=== PATIENT | female | born 1950 | race Asian ===

== ENCOUNTER 2016-10-20 13:12 | Outpatient (CLI) | payer MEDICARE, OTHER ==
[2016-10-20 13:47] LABS: Anion Gap 15 mmol/L (10-20); BUN (Urea Nitrogen) 37 mg/dL (9.8-20.1); Calc. Creatinine Clearance 0 mL/min (70-130); Calcium 9.2 mg/dL (7.8-10.44); Carbon Dioxide 24 mmol/L (23-31); Chloride 108 mmol/L (98-107); Estimated GFR-MDRD 15; Glucose 88 mg/dL (80-115); Potassium 3.4 mmol/L (3.5-5.1); Sodium 144 mmol/L (136-145)
[2016-10-20 17:27] LABS: Creatinine, Urine 37.92 mg/dL (47-110)
== END 2016-10-20 13:13 | disposition home or self-care (01) ==
LOC: MADLAB 13:12
PROVIDERS: ATTEND Internal Medicine Nephrology
DX: N18.9 Chronic kidney disease, unspecified (principal); R80.9 Proteinuria, unspecified
CPT/HCPCS: 36415; 80048; 82570; 84156; 85014; 85018

== ENCOUNTER 2016-11-02 14:43 | Outpatient (CLI) | payer MEDICARE, OTHER | END 2016-11-02 14:44 | LOC: MADLABBHPM 14:43 | PROVIDERS: ATTEND Family Medicine | DX: R30.0 Dysuria (principal) | CPT/HCPCS: 87077; 87086; 87186 ==

== ENCOUNTER 2016-11-09 12:35 | Outpatient (CLI) | payer MEDICARE, OTHER ==
[2016-11-09 12:46] LABS: Bilirubin Negative (Negative); Blood, Urine Moderate (Negative); Clarity Clear (Clear); Glucose, Urine (Dipstick) Negative (Negative); Leukocyte Small (Negative); Nitrite Negative (Negative); Protein, Urine (Dipstick) 30 mg/dL (Neg-Trace); Urobilinogen 0.2 mg/dL (0.2-1.0)
[2016-11-09 12:53] LABS: Bacteria/HPF None Seen HPF (None Seen); RBC/HPF 0-3 HPF (0-3); Squamous Epithelial 0-3 HPF (0-3)
== END 2016-11-09 12:36 ==
LOC: MADLABBHPM 12:35
PROVIDERS: ATTEND Family Medicine
DX: N30.00 Acute cystitis without hematuria (principal)
CPT/HCPCS: 36415; 81001

== ENCOUNTER 2017-12-17 22:35 | Emergency (ER) | payer MEDICARE, OTHER ==
[2017-12-17 23:28] LABS: ALT (SGPT) 8 U/L (8-55); AST (SGOT) 10 U/L (5-34); Albumin 3.9 g/dL (3.4-4.8); Alkaline Phosphatase 34 U/L (40-150); Anion Gap 23 mmol/L (10-20); BUN (Urea Nitrogen) 70 mg/dL (9.8-20.1); Bilirubin, Total 0.5 mg/dL (0.2-1.2); Calc. Creatinine Clearance 0 mL/min (70-130); Calcium 8.6 mg/dL (7.8-10.44); Carbon Dioxide 12 mmol/L (23-31); Chloride 111 mmol/L (98-107); Estimated GFR-MDRD 6; Globulin 3.8 g/dL (2.4-3.5); Glucose 137 mg/dL (80-115); Potassium 3.7 mmol/L (3.5-5.1); Protein, Total 7.7 g/dL (6.0-8.3); Sodium 142 mmol/L (136-145)
[2017-12-17 23:36] LABS: Anisocytosis SLIGHT = 6-15 cells (100X) (0-5/hpf); MDiff Complete? YES; Macrocytosis SLIGHT = 6-15 cells (100X) (0-5/hpf); Mean Corpuscular HGB CONC 38.6 g/dL (32.0-36.0); Mean Corpuscular Hemoglobin 35.8 pg (27.0-31.0); Mean Corpuscular Volume 92.8 fl (81.0-99.0); Mean Platelet Volume 6.1 fL (7.4-10.4); PLT Morphology Comment Appears Adequate; Platelet Count 199 thou/uL (130-400); Poikilocytosis SLIGHT = 6-15 cells (100X) (0-5/hpf); RBC Distribution Width 12.4 % (11.5-14.5); Red Blood Cell (RBC) Count 2.51 mill/uL (4.20-5.40)
[2017-12-17 23:38] LABS: #Basophils 0.1 thou/uL (0.0-0.2); #Eosinphils 0.3 thou/uL (0.0-0.7); #Lymphocytes 1.8 thou/uL (1.20-3.40); #Monocytes 0.6 thou/uL (0.11-0.59); #Neutrophils 5.2 thou/uL (1.40-6.50); %Basophils 1.3 % (0.0-1.0); %Eosinophils 3.2 % (0.0-10.0); %Lymphocytes 24.4 % (21.0-51.0); %Monocytes 6.5 % (0.0-10.0); %Neutrophils 64.6 % (42.0-75.0)
== END 2017-12-18 00:45 | disposition home or self-care (01) ==
LOC: MADERS 22:35
DX: N17.9 Acute kidney failure, unspecified (principal); D64.9 Anemia, unspecified; I10 Essential (primary) hypertension
CPT/HCPCS: 80053; 85025; 99283

== ENCOUNTER 2017-12-19 18:13 | Outpatient (CLI) | payer MEDICARE, OTHER ==
[2017-12-19 18:43] LABS: Anion Gap 21 mmol/L (10-20); BUN (Urea Nitrogen) 73 mg/dL (9.8-20.1); Calc. Creatinine Clearance 0 mL/min (70-130); Calcium 8.4 mg/dL (7.8-10.44); Carbon Dioxide 13 mmol/L (23-31); Chloride 109 mmol/L (98-107); Estimated GFR-MDRD 6; Glucose 136 mg/dL (80-115); Potassium 3.6 mmol/L (3.5-5.1); Sodium 139 mmol/L (136-145)
== END 2017-12-19 18:14 | disposition home or self-care (01) ==
LOC: MADLAB 18:13
PROVIDERS: ATTEND Family Medicine
DX: N17.9 Acute kidney failure, unspecified (principal)
CPT/HCPCS: 36415

== ENCOUNTER 2017-12-22 11:42 | Outpatient (CLI) | payer MEDICARE, OTHER ==
[2017-12-22 13:03] LABS: Bilirubin Negative (Negative); Blood, Urine Small (Negative); Clarity Clear (Clear); Glucose, Urine (Dipstick) 100 mg/dL (Negative); Leukocyte Negative (Negative); Nitrite Negative (Negative); Protein, Urine (Dipstick) 30 mg/dL (Neg-Trace); Urobilinogen 0.2 mg/dL (0.2-1.0)
[2017-12-22 13:06] LABS: Specific Gravity, Urine 1.004 (1.002-1.036)
[2017-12-22 13:17] LABS: #Basophils 0.1 thou/uL (0.0-0.2); #Eosinphils 0.2 thou/uL (0.0-0.7); #Lymphocytes 1.3 thou/uL (1.20-3.40); #Monocytes 0.5 thou/uL (0.11-0.59); #Neutrophils 5.2 thou/uL (1.40-6.50); %Basophils 1.5 % (0.0-1.0); %Eosinophils 3.1 % (0.0-10.0); %Lymphocytes 18.1 % (21.0-51.0); %Monocytes 6.7 % (0.0-10.0); %Neutrophils 70.6 % (42.0-75.0); Hemoglobin 8.7 g/dL (12.0-16.0); Mean Corpuscular HGB CONC 35.4 g/dL (32.0-36.0); Mean Corpuscular Volume 90.5 fl (81.0-99.0); Mean Platelet Volume 6.3 fL (7.4-10.4); Platelet Count 191 thou/uL (130-400); RBC Distribution Width 12.5 % (11.5-14.5); Red Blood Cell (RBC) Count 2.71 mill/uL (4.20-5.40); White Blood Cell (WBC) Count 7.4 thou/uL (4.8-10.8)
[2017-12-22 13:23] LABS: ALT (SGPT) 8 U/L (8-55); AST (SGOT) 9 U/L (5-34); Albumin 3.9 g/dL (3.4-4.8); Alkaline Phosphatase 35 U/L (40-150); Anion Gap 17 mmol/L (10-20); BUN (Urea Nitrogen) 68 mg/dL (9.8-20.1); Bilirubin, Total 0.7 mg/dL (0.2-1.2); Calc. Creatinine Clearance 0 mL/min (70-130); Calcium 9.1 mg/dL (7.8-10.44); Carbon Dioxide 16 mmol/L (23-31); Chloride 108 mmol/L (98-107); Estimated GFR-MDRD 6; Globulin 3.4 g/dL (2.4-3.5); Glucose 143 mg/dL (80-115); Potassium 3.4 mmol/L (3.5-5.1); Protein, Total 7.3 g/dL (6.0-8.3); Sodium 138 mmol/L (136-145)
--- NOTE | 2017-12-22 14:03 | ULT ---
RENAL ULTRASOUND: INDICATIONS: History of polycystic kidney disease. COMPARISON: Abdominal ultrasound dated 02/20/2009 from the [facility]. FINDINGS: The right kidney measures 12.8 x 4.9 x 4.5 cm. There is worsening polycystic involvement of the righ t kidney. No definite soft tissue mass is evident. No silvina hydronephrosis is noted. The left kidney measures 16.8 x 9.7 x 7.3 cm with much worsening polycystic involvement of the left k idney. No hydronephrosis is evident. The pre-void bladder volume is 18 mL, and the post-void is 8 m L. IMPRESSION: 1. Polycystic kidney disease of both kidneys. Limited visualization of the full renal parenchyma bi laterally. The extent of disease makes image detail slightly limited. No definite solid mass is not ed. 2. Minimal volume seen within the bladder. POS: [facility]
[2017-12-22 18:55] LABS: Creatinine, Urine 26.97 mg/dL (47-110)
== END 2017-12-22 11:43 | disposition home or self-care (01) ==
LOC: MADLAB 11:42
PROVIDERS: ATTEND Internal Medicine Nephrology
DX: N18.5 Chronic kidney disease, stage 5 (principal); Q61.3 Polycystic kidney, unspecified
CPT/HCPCS: 36415; 76770; 80053; 81003; 82570; 83970; 84156; 85025

== ENCOUNTER 2018-01-17 09:22 | Outpatient (CLI) | payer MEDICARE, OTHER ==
[2018-01-17 10:42] LABS: Calc. Creatinine Clearance 0 mL/min (70-130); Estimated GFR-MDRD 5
[2018-01-17 11:45] LABS: ALT (SGPT) 7 U/L (8-55); AST (SGOT) 8 U/L (5-34); Albumin 4.2 g/dL (3.4-4.8); Alkaline Phosphatase 39 U/L (40-150); Anion Gap 21 mmol/L (10-20); BUN (Urea Nitrogen) 68 mg/dL (9.8-20.1); Bilirubin, Total 0.6 mg/dL (0.2-1.2); Calcium 9.5 mg/dL (7.8-10.44); Carbon Dioxide 14 mmol/L (23-31); Chloride 113 mmol/L (98-107); Globulin 3.8 g/dL (2.4-3.5); Glucose 103 mg/dL (80-115); Potassium 4.1 mmol/L (3.5-5.1); Sodium 144 mmol/L (136-145)
--- NOTE | 2018-01-17 12:26 | CT ---
CT ABDOMEN WITHOUT IV CONTRAST: CT PELVIS WITHOUT IV CONTRAST: HISTORY: A 67-year-old female with a history of chronic kidney disease. History of polycystic kidney disease. FINDINGS: Minimal increased linear and interstitial markings in the lung bases, nonspecific. Multiple liver cy sts, up to 3.5 cm. Small hiatal hernia. The gallbladder, pancreas, spleen, and adrenal glands are u nremarkable. There are very markedly enlarged kidneys bilaterally with enumerable renal cysts throug hout, including an occasional hemorrhagic cyst and occasional punctate calcification, evidence for lo ngstanding adult polycystic kidney disease without evidence for acute obstruction or overt solid luiz gnancy. Normal appearing bladder. There is some colonic diverticulosis without diverticulitis. No evidence of large or small bowel obstruction. No abscess, adenopathy, or abnormal fluid collection. IMPRESSION: 1. Very markedly enlarged kidneys bilaterally, evidence for adult polycystic kidney disease, without evidence for acute genitourinary obstruction. 2. No definitive solid mass. 3. Multiple liver cysts. 4. Small hiatal hernia. 5. No CT evidence for acute appendicitis. 6. Unremarkable bladder. POS: [facility]
== END 2018-01-17 09:23 | disposition home or self-care (01) ==
LOC: MADLAB 09:22
PROVIDERS: ATTEND Specialist
DX: R19.04 Left lower quadrant abdominal swelling, mass and lump (principal); R11.0 Nausea; N18.5 Chronic kidney disease, stage 5; K44.9 Diaphragmatic hernia without obstruction or gangrene; Q61.3 Polycystic kidney, unspecified; K76.89 Other specified diseases of liver
CPT/HCPCS: 36415; 74176; 80053

== ENCOUNTER 2018-09-18 10:21 | Emergency (ER) | payer MEDICARE, OTHER | END 2018-09-18 11:02 | disposition home or self-care (01) | LOC: MADERS 10:21 | DX: K42.9 Umbilical hernia without obstruction or gangrene (principal); I10 Essential (primary) hypertension; D64.9 Anemia, unspecified; Z79.899 Other long term (current) drug therapy | CPT/HCPCS: 99284 ==

== ENCOUNTER 2019-08-25 10:37 | Emergency (ER) | payer MEDICARE, OTHER ==
--- NOTE | 2019-08-25 11:23 | RAD ---
EXAM: Single view of the chest HISTORY: Chest pain COMPARISON: None FINDINGS: Single view of the chest shows a normal sized cardiomediastinal silhouette. There is a mode rate right pleural effusion with adjacent atelectasis. The bones are unremarkable. IMPRESSION: Moderate right pleural effusion.
[2019-08-25 11:29] LABS: #Basophils 0.1 thou/uL (0.0-0.2); #Eosinphils 0.3 thou/uL (0.0-0.7); #Lymphocytes 2.2 thou/uL (1.20-3.40); #Monocytes 0.6 thou/uL (0.11-0.59); #Neutrophils 5.8 thou/uL (1.40-6.50); %Basophils 0.9 % (0.0-1.0); %Lymphocytes 24.5 % (21.0-51.0); %Monocytes 7.2 % (0.0-10.0); %Neutrophils 64.4 % (42.0-75.0); Hemoglobin 9.8 g/dL (12.0-16.0); Mean Corpuscular HGB CONC 32.4 g/dL (32.0-36.0); Mean Corpuscular Hemoglobin 30.7 pg (27.0-31.0); Mean Corpuscular Volume 94.8 fL (78.0-98.0); Mean Platelet Volume 5.7 fL (7.4-10.4); Platelet Count 278 thou/uL (130-400); RBC Distribution Width 13.4 % (11.5-14.5); Red Blood Cell (RBC) Count 3.18 mill/uL (4.20-5.40)
[2019-08-25 11:47] LABS: ALT (SGPT) 12 U/L (8-55); AST (SGOT) 10 U/L (5-34); Albumin 3.5 g/dL (3.4-4.8); Alkaline Phosphatase 36 U/L (40-110); Anion Gap 19 mmol/L (10-20); BUN (Urea Nitrogen) 56 mg/dL (9.8-20.1); Bilirubin, Total 0.6 mg/dL (0.2-1.2); Calc. Creatinine Clearance 0 mL/min (70-130); Calcium 8.9 mg/dL (7.8-10.44); Carbon Dioxide 24 mmol/L (23-31); Chloride 101 mmol/L (98-107); Estimated GFR-MDRD 5; Globulin 3.5 g/dL (2.4-3.5); Glucose 110 mg/dL (80-115); Potassium 3.2 mmol/L (3.5-5.1); Sodium 141 mmol/L (136-145)
[2019-08-25] MEDS ORDERED: Potassium Chloride 10 MEQ TAB ONE (12:15)
== END 2019-08-25 13:12 | disposition left against medical advice (07) ==
LOC: MADERS 10:37
DX: J90 Pleural effusion, not elsewhere classified (principal); I45.81 Long QT syndrome; E87.70 Fluid overload, unspecified; E87.6 Hypokalemia; I10 Essential (primary) hypertension; Z79.899 Other long term (current) drug therapy
CPT/HCPCS: 36415; 71045; 80053; 83735; 83880; 84484; 85025; 93005

== ENCOUNTER 2019-08-29 15:29 | Outpatient (CLI) | payer MEDICARE, OTHER ==
--- NOTE | 2019-08-29 15:45 | RAD ---
XR Chest Pa Lat STANDARD History: Pleural effusion Comparison: Radiograph August 25, 2019 Findings: Large right layering pleural effusion is similar. Left lung is relatively clear. No pneumot horax. Minimal leftward shift of the mediastinum. No acute osseous abnormality. Impression: Unchanged size large right layering pleural effusion.
== END 2019-08-29 15:30 | disposition home or self-care (01) ==
LOC: MADRAD 15:29
PROVIDERS: ATTEND Family Medicine
DX: J90 Pleural effusion, not elsewhere classified (principal)
CPT/HCPCS: 71046

== ENCOUNTER 2019-09-05 10:17 | Outpatient (CLI) | payer MEDICARE, OTHER ==
--- NOTE | 2019-09-05 10:39 | RAD ---
XR Chest Pa Lat STANDARD HISTORY: Right pleural effusion COMPARISON: 08/08/2019 FINDINGS: A moderate-sized right pleural effusion is seen. Mild interval reduction in the size of the effusion is noted since the exam of 08/29/2019. Remainder the exam is otherwise stable.
--- NOTE | 2019-09-05 10:44 | RAD ---
KUB: HISTORY: Abdominal pain. The bowel gas pattern is nonobstructive. Surgical clips are seen in the right upper quadrant most co mpatible with the prior cholecystectomy. There is what appears to be a peritoneal dialysis catheter in the left lower quadrant. IMPRESSION: No acute findings. POS: [facility]
== END 2019-09-05 10:18 | disposition home or self-care (01) ==
LOC: MADRAD 10:17
PROVIDERS: ATTEND Internal Medicine Nephrology
DX: J90 Pleural effusion, not elsewhere classified (principal)
CPT/HCPCS: 71046; 74018

== ENCOUNTER 2019-09-13 14:22 | Outpatient (CLI) | payer MEDICARE, OTHER ==
--- NOTE | 2019-09-13 14:49 | RAD ---
EXAM: Chest PA and lateral: HISTORY: Pleural effusion COMPARISON: 09/05/2019 FINDINGS: Moderate size right pleural effusion is again seen, unchanged from prior exam. Lungs otherwise remain clear and unchanged. Heart and mediastinum appear unremarkable. Osseous structures are unremarkable. IMPRESSION: Right pleural effusion appears unchanged from prior exam.
== END 2019-09-13 14:23 | disposition home or self-care (01) ==
LOC: MADLAB 14:22
PROVIDERS: ATTEND Internal Medicine Nephrology
DX: N18.6 End stage renal disease (principal); J90 Pleural effusion, not elsewhere classified
CPT/HCPCS: 36415; 71046; 84132

== ENCOUNTER 2019-12-30 19:54 | Emergency (ER) | payer MEDICARE, OTHER ==
[2019-12-30] MEDS ORDERED: HYDROcodone/Acetaminophen 10/325 mg Tablet ONE (20:56)
--- NOTE | 2019-12-30 21:31 | RAD ---
TWO VIEW CHEST: History: Dyspnea. Comparison: 09-13-19 FINDINGS: Large right pleural effusion takes up most of the right hemithorax. A small amount of aerated lung in the right upper lobe. Left lung appears aerated and clear. There is cardiomegaly and mild vascular engorgement. IMPRESSION: 1. Large right pleural effusion has occurred since the prior exam. There was a small to moderate size d effusion on the right, noted on the prior study. POS: [facility]
--- NOTE | 2019-12-30 21:32 | RAD ---
ONE VIEW ABDOMEN: FINDINGS: An upright view of the abdomen obtained. Bowel gas pattern is unremarkable. Gas in the stomach under the left hemidiaphragm. Large right effusion opacifies the right hemithorax. IMPRESSION: Unremarkable bowel gas pattern. POS: [facility]
[2019-12-30 22:30] LABS: #Basophils 0.1 thou/uL (0.0-0.2); #Eosinphils 0.2 thou/uL (0.0-0.7); #Lymphocytes 2.5 thou/uL (1.20-3.40); #Monocytes 0.8 thou/uL (0.11-0.59); #Neutrophils 10.6 thou/uL (1.40-6.50); %Basophils 0.5 % (0.0-1.0); %Eosinophils 1.3 % (0.0-10.0); %Lymphocytes 17.8 % (21.0-51.0); %Monocytes 5.7 % (0.0-10.0); %Neutrophils 74.8 % (42.0-75.0); Hemoglobin 12.5 g/dL (12.0-16.0); Mean Corpuscular HGB CONC 32.2 g/dL (32.0-36.0); Mean Corpuscular Hemoglobin 30.3 pg (27.0-31.0); Mean Corpuscular Volume 94.1 fL (78.0-98.0); Mean Platelet Volume 6.2 fL (7.4-10.4); Platelet Count 310 thou/uL (130-400); RBC Distribution Width 12.8 % (11.5-14.5); Red Blood Cell (RBC) Count 4.11 mill/uL (4.20-5.40); White Blood Cell (WBC) Count 14.2 thou/uL (4.8-10.8)
[2019-12-30 22:47] LABS: ALT (SGPT) 14 U/L (8-55); AST (SGOT) 11 U/L (5-34); Albumin 3.8 g/dL (3.4-4.8); Alkaline Phosphatase 44 U/L (40-110); Anion Gap 25 mmol/L (10-20); BUN (Urea Nitrogen) 51 mg/dL (9.8-20.1); Bilirubin, Total 0.6 mg/dL (0.2-1.2); Calc. Creatinine Clearance 0 mL/min (70-130); Calcium 9.6 mg/dL (7.8-10.44); Carbon Dioxide 16 mmol/L (23-31); Chloride 98 mmol/L (98-107); Estimated GFR-MDRD 5; Globulin 4.1 g/dL (2.4-3.5); Glucose 138 mg/dL (80-115); Potassium 3.9 mmol/L (3.5-5.1); Protein, Total 7.9 g/dL (6.0-8.3); Sodium 135 mmol/L (136-145)
== END 2019-12-30 23:47 | disposition short-term general hospital (02) ==
LOC: MADERS 19:54
DX: J90 Pleural effusion, not elsewhere classified (principal); T85.611A Breakdown (mechanical) of intraperitoneal dialysis catheter, initial encounter; I12.0 Hypertensive chronic kidney disease with stage 5 chronic kidney disease or end stage renal disease; N18.9 Chronic kidney disease, unspecified; Z79.899 Other long term (current) drug therapy
CPT/HCPCS: 36415; 71046; 74018; 80053; 83880; 85025

== ENCOUNTER 2020-01-03 10:32 | Outpatient (CLI) | payer MEDICARE, OTHER ==
--- NOTE | 2020-01-03 11:01 | RAD ---
DANAB: Date: 01/03/2020 COMPARISON: 12/30/2019. HISTORY: Peritoneal dialysis catheter. FINDINGS: Catheter tubing curls in the right hemipelvis consistent with the provided history of peritoneal dial ysis. There is a paucity of bowel gas noted throughout the abdomen/pelvis which may signify free flui d or fluid-filled bowel. Clips in right upper quadrant suggest prior cholecystectomy. IMPRESSION: Peritoneal dialysis catheter overlies right hemipelvis. POS: [facility]
--- NOTE | 2020-01-03 11:06 | RAD ---
2 VIEW CHEST: Date: 01/03/2020 INDICATION: Pleural effusion. COMPARISON: 12/31/2019. FINDINGS: There is enlarging right pleural effusion with compressive atelectasis and/or infiltrate in the right lower lung. Left lung appears aerated and clear. No significant left effusion. I cannot exclude mild left basilar atelectasis. There is mild vascular engorgement which has a similar appearance. Mild apical pleural thickening on the right appears stable. IMPRESSION: Enlarging right effusion and compressive atelectasis and/or infiltrate in the right lower lung. POS: [facility]
== END 2020-01-03 10:33 | disposition home or self-care (01) ==
LOC: MADRAD 10:32
PROVIDERS: ATTEND Internal Medicine Nephrology
DX: N18.6 End stage renal disease (principal); J90 Pleural effusion, not elsewhere classified; J98.11 Atelectasis; R91.8 Other nonspecific abnormal finding of lung field
CPT/HCPCS: 71046; 74018

== ENCOUNTER 2020-07-08 14:00 | Outpatient (CLI) | payer MEDICARE, OTHER ==
[2020-07-08 14:25] LABS: #Basophils 0.1 thou/uL (0.0-0.2); #Eosinphils 0.2 thou/uL (0.0-0.7); #Lymphocytes 1.9 thou/uL (1.20-3.40); #Monocytes 0.7 thou/uL (0.11-0.59); #Neutrophils 4.4 thou/uL (1.40-6.50); %Basophils 1.8 % (0.0-1.0); %Eosinophils 3.4 % (0.0-10.0); %Lymphocytes 25.7 % (21.0-51.0); %Monocytes 9.3 % (0.0-10.0); Hemoglobin 12.1 g/dL (12.0-16.0); Mean Corpuscular HGB CONC 32.1 g/dL (32.0-36.0); Mean Corpuscular Hemoglobin 29.7 pg (27.0-31.0); Mean Corpuscular Volume 92.5 fL (78.0-98.0); Mean Platelet Volume 5.5 fL (7.4-10.4); Platelet Count 289 thou/uL (130-400); RBC Distribution Width 12.7 % (11.5-14.5); Red Blood Cell (RBC) Count 4.06 mill/uL (4.20-5.40); White Blood Cell (WBC) Count 7.4 thou/uL (4.8-10.8)
--- NOTE | 2020-07-08 14:30 | RAD ---
EXAM: Chest 2 views: HISTORY: Acute chest pain COMPARISON: 01/03/2020 FINDINGS: There is a normal-sized cardiomediastinal silhouette. There is a small right pleural effusion. Incre ased interstitial lung markings are present. Calcified granuloma projects over the right lower lobe. Atherosclerotic calcifications are seen in the aorta. No acute osseous abnormality. Cholecyste ctomy clips are seen. IMPRESSION: Small right pleural effusion
[2020-07-08 14:40] LABS: CKMB 1.7 ng/mL (0-6.6); Troponin I 0.011 ng/mL (< 0.028)
== END 2020-07-08 14:01 | disposition home or self-care (01) ==
LOC: MADLAB 14:00
PROVIDERS: ATTEND Family Medicine
DX: R07.9 Chest pain, unspecified (principal); J90 Pleural effusion, not elsewhere classified
CPT/HCPCS: 36415; 71046; 82553; 84484; 85025; 93005; 93010

== ENCOUNTER 2020-07-30 13:55 | Outpatient (CLI) | payer MEDICARE, OTHER ==
--- NOTE | 2020-07-30 14:37 | RAD ---
XR Chest Pa Lat STANDARD History: Pleural effusion Comparison: Radiograph 07/08/2020 Findings: Right layering pleural effusion has decreased in size with small right basilar pneumothorax . New left-sided subdiaphragmatic free intraperitoneal gas. Small peripheral triangular shaped thickening along the right minor fissure. Lung hyperinflation. Prominent left basilar nipple shadow. Extensive scarring both lung apices. Heart size not enlarged. M oderate vascular calcifications. Impression: 1. Small right basilar pneumothorax can be seen with a recent thoracentesis attempt. 2. Free intraperitoneal gas could be sequelae of peritoneal dialysis catheter. If patient has acute p eritoneal signs or abdominal pain, CT would be recommended. 3. Likely a prominent left basilar nipple shadow less likely a nodule as it was not seen on recent ra diographs. Dr. Berger was notified via [employer] at 2:17 PM. Phone call was made to the clinic although there was no answer beyond the paralegal legal secretary.
== END 2020-07-30 13:56 | disposition home or self-care (01) ==
LOC: MADLABBHPM 13:55
PROVIDERS: ATTEND Family Medicine
DX: J90 Pleural effusion, not elsewhere classified (principal); J93.9 Pneumothorax, unspecified
CPT/HCPCS: 71046

== ENCOUNTER 2020-09-10 10:49 | Emergency (ER) | payer MEDICARE, OTHER ==
[2020-09-10 12:11] LABS: #Basophils 0.2 thou/uL (0.0-0.2); #Eosinphils 0.3 thou/uL (0.0-0.7); #Lymphocytes 2.4 thou/uL (1.20-3.40); #Neutrophils 7.8 thou/uL (1.40-6.50); %Basophils 1.4 % (0.0-1.0); %Eosinophils 2.7 % (0.0-10.0); %Lymphocytes 20.4 % (21.0-51.0); %Monocytes 8.4 % (0.0-10.0); %Neutrophils 67.1 % (42.0-75.0); Hemoglobin 10.7 g/dL (12.0-16.0); Mean Corpuscular HGB CONC 33.8 g/dL (32.0-36.0); Mean Corpuscular Hemoglobin 30.8 pg (27.0-31.0); Mean Corpuscular Volume 91.2 fL (78.0-98.0); Mean Platelet Volume 5.8 fL (7.4-10.4); Platelet Count 247 thou/uL (130-400); RBC Distribution Width 12.5 % (11.5-14.5); Red Blood Cell (RBC) Count 3.46 mill/uL (4.20-5.40); White Blood Cell (WBC) Count 11.6 thou/uL (4.8-10.8)
[2020-09-10 12:15] LABS: Bilirubin Negative (Negative); Blood, Urine Trace (Negative); Clarity Clear (Clear); Glucose, Urine (Dipstick) 100 mg/dL (Negative); Ketone, Urine Negative (Negative); Leukocyte Negative (Negative); Nitrite Negative (Negative); Protein, Urine (Dipstick) 100 mg/dL (Neg-Trace); Specific Gravity, Urine 1.015 (1.005-1.030); Urobilinogen 0.2 mg/dL (Less than 2)
[2020-09-10 12:19] LABS: Bacteria/HPF Rare-Few HPF (None Seen); Squamous Epithelial 0-3 HPF (0-3)
[2020-09-10 12:31] LABS: ALT (SGPT) 35 U/L (8-55); AST (SGOT) 23 U/L (5-34); Alkaline Phosphatase 35 U/L (40-110); Anion Gap 19 mmol/L (10-20); BUN (Urea Nitrogen) 68 mg/dL (9.8-20.1); Bilirubin, Total 0.7 mg/dL (0.2-1.2); CK (CPK) 87 U/L (29-168); Calc. Creatinine Clearance 0 mL/min (70-130); Calcium 8.9 mg/dL (7.8-10.44); Carbon Dioxide 20 mmol/L (23-31); Chloride 100 mmol/L (98-107); Globulin 3.1 g/dL (2.4-3.5); Glucose 93 mg/dL (80-115); Lipase 80 U/L (8-78); Potassium 4.4 mmol/L (3.5-5.1); Protein, Total 6.1 g/dL (6.0-8.3); Sodium 135 mmol/L (136-145)
--- NOTE | 2020-09-10 12:57 | CT ---
CT ABDOMEN AND PELVIS WITH CONTRAST: Date: 09/10/2020 HISTORY: Abdominal pain. COMPARISON: Abdomen and pelvis CT from 2018. FINDINGS: Some chronic pleural thickening right lung base with some round atelectasis. Numerous hepatic and milton al cysts, polycystic renal disease. The peritoneal dialysis catheter appears normal without kink and terminates in the right lower quadra nt of the pelvis. As expected, small volume ascites. There is a small, just left to midline, fluid-containing hernia, which has a very small neck, measuri ng less than 3.0 mm in size. There is no bowel in this hernia and it is near the umbilicus. Aortic contour is nonaneurysmal. Moderate atherosclerotic plaque. Prior cholecystectomy. Lumbar spine is intact. IMPRESSION: 1. New from the comparison 2018 exam is a small, just left to midline, paracentral fluid-containing and fat-containing hernia with a thin neck. 2. Intact peritoneal dialysis catheter without kink. No significant inflammation along the subcutane ous fat adjacent to the catheter. 3. Polycystic kidney and hepatic disease. 4. Mild pleural thickening right lung base with low grade round atelectasis. 5. Normal appendix. 6. Moderate diverticular disease of the colon without active current inflammation. POS: [facility]
[2020-09-10] MEDS ORDERED: cefTRIAXone\\ROCEPHIN 1 GM VIAL ONE (13:26)
[2020-09-10] MEDS ORDERED: Lidocaine 1% 20 ML MDV ONE (13:26)
== END 2020-09-10 13:45 | disposition home or self-care (01) ==
LOC: MADERS 10:49
DX: N39.0 Urinary tract infection, site not specified (principal); I12.9 Hypertensive chronic kidney disease with stage 1 through stage 4 chronic kidney disease, or unspecified chronic kidney disease; N18.9 Chronic kidney disease, unspecified; Z99.2 Dependence on renal dialysis; Z79.899 Other long term (current) drug therapy
CPT/HCPCS: 36415; 74176; 80053; 81003; 81015; 82150; 82550; 83690; 85025; 86140; 87086; 96372; J0696

== ENCOUNTER 2020-10-02 13:36 | Outpatient (CLI) | payer MEDICARE, OTHER ==
[2020-10-02 14:03] LABS: Bilirubin Negative (Negative); Blood, Urine Trace (Negative); Clarity Clear (Clear); Glucose, Urine (Dipstick) 100 mg/dL (Negative); Ketone, Urine Negative (Negative); Leukocyte Negative (Negative); Nitrite Negative (Negative); Protein, Urine (Dipstick) 30 mg/dL (Neg-Trace); Specific Gravity, Urine 1.015 (1.005-1.030); Urobilinogen 0.2 mg/dL (Less than 2)
[2020-10-02 14:15] LABS: Bacteria/HPF Rare-Few HPF (None Seen); RBC/HPF 0-3 HPF (0-3); Squamous Epithelial 0-3 HPF (0-3)
== END 2020-10-02 13:37 | disposition home or self-care (01) ==
LOC: MADLAB 13:36
PROVIDERS: ATTEND Family Medicine
DX: N39.0 Urinary tract infection, site not specified (principal)
CPT/HCPCS: 81001; 87086

== ENCOUNTER 2020-12-22 10:43 | Outpatient (CLI) | payer MEDICARE, OTHER | END 2020-12-22 10:44 | disposition home or self-care (01) | LOC: MADRAD 10:43 | PROVIDERS: ATTEND Internal Medicine Nephrology | DX: K46.9 Unspecified abdominal hernia without obstruction or gangrene (principal) | CPT/HCPCS: 74176 ==

== ENCOUNTER 2020-12-28 12:44 | Emergency (ER) | payer MEDICARE, OTHER ==
[2020-12-28 13:16] LABS: Bilirubin Negative (Negative); Blood, Urine Small (Negative); Clarity Clear (Clear); Glucose, Urine (Dipstick) 100 mg/dL (Negative); Ketone, Urine Negative (Negative); Leukocyte Small (Negative); Nitrite Negative (Negative); Protein, Urine (Dipstick) 100 mg/dL (Neg-Trace); Urobilinogen 0.2 mg/dL (Less than 2)
[2020-12-28 13:20] LABS: Bacteria/HPF Rare-Few HPF (None Seen); RBC/HPF 0-3 HPF (0-3)
[2020-12-28 13:45] LABS: #Basophils 0.1 thou/uL (0.0-0.2); #Eosinphils 0.3 thou/uL (0.0-0.7); #Lymphocytes 0.9 thou/uL (1.20-3.40); #Monocytes 0.9 thou/uL (0.11-0.59); #Neutrophils 7.5 thou/uL (1.40-6.50); %Basophils 1.3 % (0.0-1.0); %Eosinophils 2.7 % (0.0-10.0); %Lymphocytes 9.7 % (21.0-51.0); %Monocytes 9.3 % (0.0-10.0); Hemoglobin 11.1 g/dL (12.0-16.0); Mean Corpuscular HGB CONC 32.6 g/dL (32.0-36.0); Mean Corpuscular Hemoglobin 32.9 pg (27.0-31.0); Mean Corpuscular Volume 101.1 fL (78.0-98.0); Mean Platelet Volume 6.1 fL (7.4-10.4); Platelet Count 356 thou/uL (130-400); RBC Distribution Width 12.6 % (11.5-14.5); Red Blood Cell (RBC) Count 3.36 mill/uL (4.20-5.40); White Blood Cell (WBC) Count 9.7 thou/uL (4.8-10.8)
[2020-12-28 13:59] LABS: CRP (Inflammatory) Less than 0.50 mg/dL (= or < 0.5)
[2020-12-28 14:03] LABS: ALT (SGPT) 21 U/L (8-55); AST (SGOT) 16 U/L (5-34); Alkaline Phosphatase 40 U/L (40-110); Anion Gap 23 mmol/L (10-20); BUN (Urea Nitrogen) 85 mg/dL (9.8-20.1); Bilirubin, Total 0.5 mg/dL (0.2-1.2); Calc. Creatinine Clearance 0 mL/min (70-130); Carbon Dioxide 21 mmol/L (23-31); Chloride 93 mmol/L (98-107); Globulin 3.3 g/dL (2.4-3.5); Glucose 132 mg/dL (80-115); Lipase 99 U/L (8-78); Potassium 3.9 mmol/L (3.5-5.1); Protein, Total 6.3 g/dL (5.8-8.1); Sodium 133 mmol/L (136-145)
== END 2020-12-28 14:20 | disposition home or self-care (01) ==
LOC: MADERS 12:44
DX: I12.9 Hypertensive chronic kidney disease with stage 1 through stage 4 chronic kidney disease, or unspecified chronic kidney disease (principal); N18.9 Chronic kidney disease, unspecified; N39.0 Urinary tract infection, site not specified; Z99.2 Dependence on renal dialysis; Z79.899 Other long term (current) drug therapy
CPT/HCPCS: 36415; 80053; 81003; 81015; 82150; 83690; 85025; 86140; 87086; 99284

== ENCOUNTER 2021-03-25 01:23 | Emergency (ER) | payer MEDICARE, OTHER ==
[2021-03-25] MEDS ORDERED: Morphine 4 MG/ML VIAL ONE (02:29)
[2021-03-25] MEDS ORDERED: Ondansetron PF 4 MG/2 ML Vial ONE (02:29)
[2021-03-25] MEDS ORDERED: Lidocaine Viscous Sol 2% 15 ml UD Cup ONE (02:29)
[2021-03-25] MEDS ORDERED: Mag-Al Plus 1200 MG/1200 MG/120 MG/30 ML UDCUP ONE (02:29)
[2021-03-25 02:45] LABS: Band 1 % (5-11); Eosinophils 1 % (0-10); Hemoglobin 10.2 g/dL (12.0-16.0); Lymphocytes 3 % (21-51); MDiff Complete? YES; Mean Corpuscular Hemoglobin 31.6 pg (27.0-31.0); Mean Corpuscular Volume 95.8 fL (78.0-98.0); Mean Platelet Volume 6.1 fL (7.4-10.4); Monocytes 5 % (0-10); Neutrophil 88 % (42-75); Platelet Count 237 thou/uL (130-400); Platelet Morphology Comment Appears Adequate; RBC Distribution Width 12.1 % (11.5-14.5); RBC Morphology Normal; Red Blood Cell (RBC) Count 3.23 mill/uL (4.20-5.40); White Blood Cell (WBC) Count 23.1 thou/uL (4.8-10.8)
[2021-03-25 02:49] LABS: ALT (SGPT) 9 U/L (8-55); AST (SGOT) 20 U/L (5-34); Alkaline Phosphatase 39 U/L (40-110); Anion Gap 22 mmol/L (10-20); BUN (Urea Nitrogen) 67 mg/dL (9.8-20.1); Bilirubin, Total 0.5 mg/dL (0.2-1.2); Calc. Creatinine Clearance 0 mL/min (70-130); Carbon Dioxide 22 mmol/L (23-31); Chloride 91 mmol/L (98-107); Globulin 3.3 g/dL (2.4-3.5); Glucose 159 mg/dL (80-115); Lipase 35 U/L (8-78); Potassium 4.8 mmol/L (3.5-5.1); Protein, Total 6.3 g/dL (5.8-8.1); Sodium 130 mmol/L (136-145)
[2021-03-25] MEDS ORDERED: diphenhydrAMINE 50 MG/ML VIAL ONE (03:41)
[2021-03-25] MEDS ORDERED: methylPREDNISolone Sod Succ/PF 125 MG/2 ML VIAL ONE (03:41)
[2021-03-25 04:27] LABS: Bilirubin Negative (Negative); Blood, Urine Trace (Negative); Clarity Clear (Clear); Glucose, Urine (Dipstick) 100 mg/dL (Negative); Ketone, Urine Negative (Negative); Leukocyte Small (Negative); Nitrite Negative (Negative); Protein, Urine (Dipstick) 100 mg/dL (Neg-Trace); Specific Gravity, Urine 1.015 (1.005-1.030); Urobilinogen 0.2 mg/dL (Less than 2); pH, Urine 7.5 (5.0-9.0)
[2021-03-25 04:34] LABS: Bacteria/HPF Rare-Few HPF (None Seen); RBC/HPF 0-3 HPF (0-3)
[2021-03-25 05:22] LABS: Lactic Acid 3.2 mmol/L (0.5-2.2)
[2021-03-25] MEDS ORDERED: Metoclopramide HCl 10 MG/2 ML VIAL ONE (06:15)
== END 2021-03-25 07:34 | disposition home or self-care (01) ==
LOC: MADERS 01:23
DX: G89.18 Other acute postprocedural pain (principal); R10.9 Unspecified abdominal pain; R11.2 Nausea with vomiting, unspecified; K21.9 Gastro-esophageal reflux disease without esophagitis; I10 Essential (primary) hypertension; Z99.2 Dependence on renal dialysis; Z79.899 Other long term (current) drug therapy; Z79.891 Long term (current) use of opiate analgesic
CPT/HCPCS: 74176; 80053; 81003; 81015; 83605; 83690; 85025; 93005; 96374; 96375; J1200; J2270; J2405; J2765; J2930

== ENCOUNTER 2021-04-26 05:12 | Emergency (ER) | payer MEDICARE, OTHER ==
[2021-04-26 06:08] LABS: #Basophils 0.1 thou/uL (0.0-0.2); #Eosinphils 1.2 thou/uL (0.0-0.7); #Lymphocytes 1.3 thou/uL (1.20-3.40); #Monocytes 1.1 thou/uL (0.11-0.59); %Basophils 0.7 % (0.0-1.0); %Eosinophils 7.9 % (0.0-10.0); %Lymphocytes 8.5 % (21.0-51.0); %Monocytes 7.4 % (0.0-10.0); %Neutrophils 75.5 % (42.0-75.0); Hemoglobin 8.4 g/dL (12.0-16.0); Mean Corpuscular HGB CONC 31.7 g/dL (32.0-36.0); Mean Corpuscular Hemoglobin 31.7 pg (27.0-31.0); Mean Corpuscular Volume 99.8 fL (78.0-98.0); Mean Platelet Volume 6.5 fL (7.4-10.4); Platelet Count 338 thou/uL (130-400); Red Blood Cell (RBC) Count 2.67 mill/uL (4.20-5.40); White Blood Cell (WBC) Count 14.6 thou/uL (4.8-10.8)
[2021-04-26] MEDS ORDERED: Furosemide 40 MG/4 ML VIAL ONE (06:23)
[2021-04-26 06:26] LABS: ALT (SGPT) 24 U/L (8-55); AST (SGOT) 45 U/L (5-34); Alkaline Phosphatase 46 U/L (40-110); Anion Gap 16 mmol/L (10-20); BUN (Urea Nitrogen) 73 mg/dL (9.8-20.1); Bilirubin, Total Less than 0.2 mg/dL (0.2-1.2); Calc. Creatinine Clearance 0 mL/min (70-130); Calcium 9.1 mg/dL (7.8-10.44); Carbon Dioxide 29 mmol/L (23-31); Chloride 91 mmol/L (98-107); Globulin 2.9 g/dL (2.4-3.5); Glucose 140 mg/dL (80-115); Potassium 4.5 mmol/L (3.5-5.1); Protein, Total 4.9 g/dL (5.8-8.1); Sodium 131 mmol/L (136-145)
== END 2021-04-26 07:10 | disposition home or self-care (01) ==
LOC: MADERS 05:12
DX: J90 Pleural effusion, not elsewhere classified (principal); I12.0 Hypertensive chronic kidney disease with stage 5 chronic kidney disease or end stage renal disease; N18.6 End stage renal disease; D63.1 Anemia in chronic kidney disease; R60.0 Localized edema; D72.829 Elevated white blood cell count, unspecified; E87.1 Hypo-osmolality and hyponatremia; E87.8 Other disorders of electrolyte and fluid balance, not elsewhere classified; K21.9 Gastro-esophageal reflux disease without esophagitis; Z99.2 Dependence on renal dialysis; Z79.899 Other long term (current) drug therapy
CPT/HCPCS: 36415; 71045; 80053; 84484; 85025; 93005; 96374; J1940

== ENCOUNTER 2021-05-17 10:32 | Emergency (ER) | payer MEDICARE, OTHER ==
[2021-05-17 11:27] LABS: #Basophils 0.2 thou/uL (0.0-0.2); #Eosinphils 0.4 thou/uL (0.0-0.7); #Lymphocytes 1.3 thou/uL (1.20-3.40); #Monocytes 1.5 thou/uL (0.11-0.59); #Neutrophils 8.8 thou/uL (1.40-6.50); %Basophils 1.6 % (0.0-1.0); %Eosinophils 3.3 % (0.0-10.0); %Lymphocytes 10.5 % (21.0-51.0); %Monocytes 12.3 % (0.0-10.0); %Neutrophils 72.3 % (42.0-75.0); Anisocytosis SLIGHT = 6-15 cells (100X) (0-5/hpf); Hypochromia SLIGHT = 6-15 cells (100X) (0-5/hpf); MDiff Complete? YES; Mean Corpuscular HGB CONC 29.5 g/dL (32.0-36.0); Mean Corpuscular Hemoglobin 26.6 pg (27.0-31.0); Mean Corpuscular Volume 90.2 fL (78.0-98.0); Mean Platelet Volume 6.9 fL (7.4-10.4); Platelet Count 259 thou/uL (130-400); Platelet Morphology Comment Appears Adequate; RBC Distribution Width 20.3 % (11.5-14.5); Red Blood Cell (RBC) Count 3.76 mill/uL (4.20-5.40); White Blood Cell (WBC) Count 12.2 thou/uL (4.8-10.8)
[2021-05-17 11:34] LABS: ALT (SGPT) 31 U/L (8-55); AST (SGOT) 24 U/L (5-34); Albumin 2.9 g/dL (3.4-4.8); Alkaline Phosphatase 97 U/L (40-110); Anion Gap 17 mmol/L (10-20); BUN (Urea Nitrogen) 46 mg/dL (9.8-20.1); Bilirubin, Total 0.6 mg/dL (0.2-1.2); CK (CPK) 43 U/L (29-168); Calc. Creatinine Clearance 0 mL/min (70-130); Calcium 9.6 mg/dL (7.8-10.44); Carbon Dioxide 30 mmol/L (23-31); Chloride 91 mmol/L (98-107); Globulin 3.3 g/dL (2.4-3.5); Glucose 109 mg/dL (80-115); Lipase 150 U/L (8-78); Magnesium 2.3 mg/dL (1.6-2.6); Potassium 4.9 mmol/L (3.5-5.1); Protein, Total 6.2 g/dL (5.8-8.1); Sodium 133 mmol/L (136-145)
[2021-05-17 13:33] LABS: Bilirubin Negative (Negative); Blood, Urine Large (Negative); Clarity Cloudy (Clear); Glucose, Urine (Dipstick) 100 mg/dL (Negative); Ketone, Urine Negative (Negative); Leukocyte Trace (Negative); Nitrite Negative (Negative); Protein, Urine (Dipstick) 100 mg/dL (Neg-Trace); Urobilinogen 0.2 mg/dL (Less than 2); pH, Urine 8.5 (5.0-9.0)
[2021-05-17 13:38] LABS: Bacteria/HPF Rare-Few HPF (None Seen); RBC/HPF Greater than 50 HPF (0-3)
== END 2021-05-17 14:21 | disposition home or self-care (01) ==
LOC: MADERS 10:32
DX: M79.81 Nontraumatic hematoma of soft tissue (principal); K21.9 Gastro-esophageal reflux disease without esophagitis; Z99.2 Dependence on renal dialysis; Z79.899 Other long term (current) drug therapy
CPT/HCPCS: 36415; 71045; 74177; 80053; 81003; 81015; 82550; 83690; 83735; 83880; 85025

== ENCOUNTER 2021-11-03 17:13 | Emergency (ER) | payer MEDICARE, OTHER | END 2021-11-03 18:36 | disposition home or self-care (01) | LOC: MADERS 17:13 | DX: I10 Essential (primary) hypertension (principal); Z79.899 Other long term (current) drug therapy; K21.9 Gastro-esophageal reflux disease without esophagitis | CPT/HCPCS: 99283 ==